=== PATIENT | male | born 1970 | race Caucasian/White ===

== ENCOUNTER 2020-01-17 15:03 | Emergency (ER) | payer OTHER ==
[~2020-01-17] VITALS: Ht 182.9 cm; Wt 111.1 kg
[2020-01-17 15:52] LABS: HEMATOCRIT 43.1 % (42.0-52.0); HEMOGLOBIN 14.6 gm/dL (14.0-18.0); MCH 28.7 pg (26.0-34.0); MCHC 33.8 g/dL (28.0-37.0); MCV 84.8 fL (80.0-100.0); PLATELET COUNT 282 thou/uL (150-400); RBC 5.08 mil/uL (4.50-6.00); RDW 14.6 % (10.5-14.5)
[2020-01-17 15:55] LABS: CREATININE 1.1 mg/dL (0.7-1.3)
[2020-01-17 16:01] LABS: ALBUMIN 4.3 g/dL (3.4-5.0); TOTAL BILIRUBIN 0.4 mg/dL (<0.1-1.0); TOTAL PROTEIN 8.2 g/dL (6.4-8.2)
[2020-01-17 16:17] LABS: PLATELET ESTIMATE NORMAL
[2020-01-17] MEDS ORDERED: OMEPRAZOLE40 MG PO (16:25)
[2020-01-17] MEDS ORDERED: ROSUVASTATIN CA10 MG PO (16:25)
[2020-01-17 16:26] LABS: URINE BILIRUBIN NEGATIVE (Negative); URINE BLOOD TRACE (Negative); URINE CLARITY CLEAR; URINE COLOR YELLOW; URINE GLUCOSE-RANDOM* NEGATIVE (Negative); URINE KETONES NEGATIVE (Negative); URINE LEUKOCYTES-REFLEX NEGATIVE (Negative); URINE NITRITE-REFLEX NEGATIVE (Negative); URINE PROTEIN (DIPSTICK) NEGATIVE (Negative); URINE SPECIFIC GRAVITY <= 1.005 (1.005-1.035); URINE UROBILINOGEN 0.2 E.U./dl (0.2-1.0)
[2020-01-17] MEDS ORDERED: NORCO 5-325 TA1 EAC1 PO (17:47)
[2020-01-17] MEDS ORDERED: AUGMENTIN 875-1 EACH PO (17:47)
[2020-01-17 18:05] VITALS: BP 127/68
== END 2020-01-17 18:06 | disposition home or self-care (01) ==
LOC: ER 15:03
PROVIDERS: Emergency Medicine
DX: K57.32 Diverticulitis of large intestine without perforation or abscess without bleeding (principal); Z98.890 Other specified postprocedural states; Z79.899 Other long term (current) drug therapy

== ENCOUNTER → 2020-04-27 | Outpatient (CLI) | payer OTHER ==
[~2020-04-27] MED LIST: AUGMENTIN 875-1 EACH PO; NEXIUM 40 MG CA40 M1 PO; NORCO 5-325 TA1 EAC1 PO; OMEPRAZOLE40 MG PO; ROSUVASTATIN CA10 MG PO
== END | disposition home or self-care (01) ==
LOC: GI 15:07 → LAB 15:07 → GI 04-30 11:26
PROVIDERS: ATTEND Student in an Organized Health Care Education/Training Program
DX: Z01.812 Encounter for preprocedural laboratory examination (principal); Z11.59 Encounter for screening for other viral diseases; Z79.899 Other long term (current) drug therapy

== ENCOUNTER → 2020-04-30 | Outpatient (CLI) | payer OTHER ==
[~2020-04-30] VITALS: Ht 182.9 cm; Wt 104.3 kg
--- NOTE | 2020-04-30 13:46 | P ---
[facility] [address] PROCEDURE REPORT Name: RAFAEL BOLANOS Room #: REG [facility]#: [id number] Admission: 04/30/20 Attend Phys: Glen Banegas MD Discharge: Date of : 70 Report #: [id number] THIS REPORT FOR: cc: Chris Mast Paul DO Thesing,Glen Walker MD ~ CC: Glen Mast DO OUTPATIENT UPPER ENDOSCOPY REPORT BRIEF HISTORY: The patient is a 49-year-old male who has a longstanding history of reflux disease. He has been poorly controlled. He also had a previous endoscopy many years ago. He does not recall specifics, but does recall some discussion about Pimentel's esophagus, but does not have any particular details. He also has intermittent solid food dysphagia. PREOPERATIVE DIAGNOSIS: Poorly controlled reflux and dysphagia and possible Pimentel in the past. POSTOPERATIVE DIAGNOSES: 1. Mild diffuse gastritis. 2. Multiple benign appearing gastric polyps. 3. Small 2 cm sliding type hiatus hernia. 4. Questionable short segment Pimentel's esophagus. MEDICATIONS: Deep sedation with propofol per anesthesia. SPECIMENS: 1. Biopsies of gastritis. 2. Biopsies of gastric polyps. 3. Biopsy of distal esophagus, rule out Pimentel. ESTIMATED BLOOD LOSS: 3 mL. PROCEDURE: EGD with biopsy and Murphy dilation. FINDINGS: Prior to propofol sedation, procedure of upper endoscopy discussed with the patient as well as potential risks and its complications. He indicates he understands and desires to proceed. DESCRIPTION OF PROCEDURE: With the patient in left lateral decubitus position, the Olympus video endoscope was inserted in the cervical esophagus under direct vision without difficulty. Examination of this organ through its entire style length revealed normal esophageal mucosa down the squamocolumnar junction. In the distal esophagus, the Z line was noted to be irregular. There may be a 2 cm [facility] [address] [address] PROCEDURE REPORT Name: RAFAEL BOLANOS [id number] Admission: 04/30/20 Attend Phys: Glen Banegas MD Discharge: Date of : 70 Report #: [id number] less short segment of Pimentel's esophagus with few scattered questionable islands of Pimentel's around the squamocolumnar junction. The mucosa was examined with white light and narrow banded imaging. The mucosa was completely flat without evidence of ulcers, strictures, mass lesions, nodules or raised lesions. Multiple biopsies were obtained. The scope was advanced and intermittently a 2 cm less sliding type hiatus hernia was seen. Mucosa hernia was unremarkable. There was no endoscopic evidence of esophagitis. The scope was advanced fully into the stomach, was examined on end view as well as retroflexed views. There was erythema in the antrum, but no ulcers or erosions. Biopsies were obtained to evaluate for H. pylori. Upon retroflexion, no mass lesions were seen. He was noted to have multiple polyps in the body and fundus of the stomach, all less than a centimeter. All had a benign appearance. Several random biopsies obtained of the polyps for diagnostic purposes. They appeared benign and probably fundic gland polyps. The pylorus, duodenal bulb, and postbulbar duodenal sweep were all inspected and noted to be unremarkable. At that point, the scope was slowly withdrawn and careful circumferential views confirmed the above findings. The patient tolerated the procedure well. Subsequently, he was dilated with passage of 52-Italian Murphy dilator without resistance. CONDITION OF THE PATIENT UPON DISCHARGE: Following procedure, the patient drowsy, aroused, conversant and will be discharged home when fully ambulatory. INSTRUCTIONS TO THE PATIENT AND FAMILY AT THE TIME OF DISCHARGE: The patient was seen in the office and given Nexium. He reports his reflux symptoms are now in control. We will follow up on biopsies and make further recommendations with regards to the findings and particularly possible Pimentel's. If he does have Pimentel mucosa, he should have a repeat endoscopy and confirmatory biopsies in 6-12 months. He is on omeprazole 40 mg daily for reflux symptoms. He should return for dilation due to recurrent symptoms of dysphagia on an as as-needed basis. Proceed with colonoscopy at this time. <ELECTRONICALLY SIGNED> By: Glen Banegas MD 04/30/20 1346 0920 0931 Glen Banegas MD /nt
--- NOTE | 2020-04-30 13:46 | P ---
[facility] [place] [address] [place] [address] PROCEDURE REPORT Name: RAFAEL BOLANOS Room #: REG [facility]#: [id number] Admission: 04/30/20 Attend Phys: Glen Banegas MD Discharge: Date of : 70 Report #: [id number] THIS REPORT FOR: cc: Chris Mast Paul DO Thesing, John A. MD ~ CC: Glen Mast DO DATE OF SERVICE: 04/30/2020 OUTPATIENT COLONOSCOPY REPORT BRIEF HISTORY: The patient is a 49-year-old male with recurrent bouts of diverticulitis. In February, he was treated for his third episode of diverticulitis. CT scan shows thickening of the sigmoid colon. PREOPERATIVE DIAGNOSIS: Recurrent diverticulitis. POSTOPERATIVE DIAGNOSES: 1. A 6 mm sessile polyp, rectum. 2. Moderate sigmoid diverticulosis coli with few scattered proximal diverticula. MEDICATIONS: Deep sedation with propofol per anesthesia. SPECIMEN: Rectal polyp. ESTIMATED BLOOD LOSS: 3 mL. PROCEDURE: Colonoscopy to cecum and terminal ileum with snare polypectomy. FINDINGS: Prior to propofol sedation, procedure of colonoscopy discussed with the patient as well as potential risks and its complications. He indicates he understands and desires to proceed. DESCRIPTION OF PROCEDURE: With the patient in left lateral decubitus position, digital examination was completed, which revealed no abnormalities. Subsequently, the Olympus video colonoscope was introduced into the rectum, advanced under direct vision to the cecum. Done with minimal difficulty. The cecum was identified by the ileocecal valve and the appendiceal orifice. I was able to visualize the distal segment of terminal ileum, which was inspected and noted to be unremarkable. At that point, the scope was slowly withdrawn and careful circumferential views were obtained. Upon slow withdrawal of the scope, the prep was excellent. Mucosa was within normal limits, normal vascular [facility] [address] [place] [address] PROCEDURE REPORT Name: RAFAEL BOLANOS [facility] [id number] Admission: 04/30/20 Attend Phys: Glen Banegas MD Discharge: Date of : 70 Report #: [id number] pattern, normal light reflex. No inflammatory lesions were seen. The colonic mucosa throughout the entire colon was normal. At the hepatic flexure, a couple of small diverticula were seen without endoscopic evidence of diverticulitis. The scope was further withdrawn and no additional abnormalities were noted until the left colon was reached, in particular the sigmoid colon, there were scattered diverticula consistent with moderate diverticulosis coli. There was no endoscopic evidence of diverticulitis. Scope was withdrawn in the rectum and in the mid to distal rectum, a 6 mm sessile polyp was seen and removed by cold snare polypectomy and recovered. Further examination revealed no additional abnormalities. Upon retroflexion, small hemorrhoids were seen. Scope was withdrawn. The patient tolerated the procedure well. CONDITION OF THE PATIENT UPON DISCHARGE: Following procedure, the patient drowsy, aroused, conversant and will be discharged to home when fully ambulatory. INSTRUCTIONS TO THE PATIENT AND FAMILY AT THE TIME OF DISCHARGE: We will follow up on the pathology of the polyp. If the polyp is an adenomatous, return in 5 years; if it is hyperplastic, then 10 years would be indicated. He has had recurrent bouts of diverticulitis. I do not see evidence of diverticulitis at this point in time, I do not see any other abnormalities. Suggest high-fiber diet. We will discuss with the patient further considerations of surgical resection due to recurrent bouts of diverticulitis. He will return to the care of Dr. Mast, return to see me as needed, especially if he has further bouts of diverticulitis or concerns. Withdrawal time from cecum was 12 minutes 11 seconds. <ELECTRONICALLY SIGNED> By: Glen Banegas MD 04/30/20 1346 0946 1005 Glen Banegas MD /nt
--- NOTE | 2020-05-01 17:06 | PATH ---
[facility] [address] PATHOLOGY RPT PROCEDURE Name: RAFAEL BOLANOS Room #: REG [facility]#: [id number] Admission: 04/30/20 Date of : 70 Discharge: Report #: [id number] Path Case #: [id number] [facility] Accession Number: [id number] . 01 Material submitted: . PART A: stomach - BX OF GASTRITIS PART B: stomach - BX OF GASTRIC POLYPS PART C: esophagus - BX OF DISTAL ESOPHAGUS. Modifiers: distal PART D: rectum - POLYP AT RECTUM . 01 Clinical history: . A: R/O H. pylori C: R/O Pimentel's Diverticulitis, GERD . 02 Diagnosis: A. Gastric mucosa, gastritis rule out H. pylori, endoscopic biopsy: - Mild reactive gastropathy. - Negative for intestinal metaplasia or atrophy. - Negative for Helicobacter pylori (properly-controlled immunohistochemical stain performed). . B. Polyps, gastric polyps, fundic gland polyps: - Negative for dysplasia. . C. Gastroesophageal mucosa, distal esophagus rule out Pimentel's, endoscopic biopsy: - Squamous mucosa showing mild esophagitis and focal increase in intraepithelial eosinophils (3 to 8/HPF), see comment. - Gastric cardia-type mucosa with moderate chronic inflammation. - Negative for intestinal metaplasia or dysplasia. . D. Polyp, at rectum, endoscopic biopsy: - Tubular adenoma. - Negative for high grade dysplasia. . (IUV:mml; 05/01/2020) [facility] 05/01/2020 1315 Local . 02 Comment: Examination of the esophageal biopsy tissue shows squamous mucosa with a marked number of intraepithelial eosinophils. Although eosinophils are commonly encountered in inflammation due to reflux esophagitis, the eosinophils in the present specimen are numerous, exceeding 3 to 8/HPF. Apart from reflux esophagitis, potential etiologies for the histologic pattern include allergic and collagen vascular diseases, fungal or parasitic infections, and eosinophilic esophagitis (idiopathic). Please [address] [address] PATHOLOGY RPT PROCEDURE Name: ARFAEL BOLANOS Room #: REG CLI [facility].#: [id number] Admission: 04/30/20 Date of : 70 Discharge: Report #: [id number] Path Case #: [id number] correlate with clinical and endoscopic findings. . (IUV:mml; 05/01/2020) . 02 Electronically signed: . Rani Mancilla MD, Pathologist NPI- [id number] . 01 Gross description: . A. The specimen is received in formalin, labeled "Rafael Carneyobe, biopsy gastritis, R/O H. pylori". Received are four segments of pale junior soft tissue ranging in size from 0.3 to 0.6 cm in maximum dimensions. The specimen is submitted entirely in cassette A1. . B. The specimen is received in formalin, labeled "Rafael Jakobe, biopsy of gastric polyps". Received are two segments of pale junior soft tissue measuring 0.4 cm each in maximum dimensions. The specimen is submitted entirely in cassette B1. . C. The specimen is received in formalin, labeled "Rafael Jakobe, biopsy distal esophagus, R/O Pimentel's". Received are four segments of pale junior soft tissue ranging in size from 0.3 to 0.6 cm in maximum dimensions. The specimen is submitted entirely in cassette C1. . D. The specimen is received in formalin, labeled "Rafael Carneyobe, polyp at rectum". Received is a segment of pale junior soft tissue measuring 1.3 cm in maximum dimensions. The specimen is submitted entirely in cassette D1. ([facility]; 04/30/2020) QAC/QAC 04/30/2020 [facility] Local . 02 Pathologist provided ICD-10: K31.9, K20.9, D12.8, K57.92, K21.0 . 02 CPT . 108338, 628036, 903421, 236356, [id number] Specimen Comment: A courtesy copy of this report has been sent to [phone], [phone] Specimen Comment: [id number] Specimen Comment: Report sent to / Performed at: [address], [place] [id number] MD Ramiro Cárdenas MD Phone: [phone] Performed at: [address], [place], [place] [id number] MD Rani Mancilla MD Phone: [phone]
== END | disposition home or self-care (01) ==
LOC: GI 07:47
PROVIDERS: ATTEND Specialist
DX: D12.8 Benign neoplasm of rectum (principal); K57.30 Diverticulosis of large intestine without perforation or abscess without bleeding; K64.8 Other hemorrhoids; K29.70 Gastritis, unspecified, without bleeding; K31.9 Disease of stomach and duodenum, unspecified; K31.7 Polyp of stomach and duodenum; K21.0 Gastro-esophageal reflux disease with esophagitis; R13.19 Other dysphagia; K44.9 Diaphragmatic hernia without obstruction or gangrene; E78.00 Pure hypercholesterolemia, unspecified; F17.220 Nicotine dependence, chewing tobacco, uncomplicated; Z98.890 Other specified postprocedural states; Z79.899 Other long term (current) drug therapy
CPT/HCPCS: 62110; 62900

== ENCOUNTER → 2020-12-17 | Outpatient (CLI) | payer OTHER | LOC: CAT 12:50 | PROVIDERS: ATTEND Family Medicine | DX: Z13.6 Encounter for screening for cardiovascular disorders (principal); E78.00 Pure hypercholesterolemia, unspecified; I25.10 Atherosclerotic heart disease of native coronary artery without angina pectoris ==

== ENCOUNTER → 2020-12-17 | Outpatient (CLI) | payer OTHER ==
[2020-12-17 13:51] LABS: ABSOLUTE NEUTROPHILS 3.5 thou/uL (1.4-8.2); BASOPHILS 0.8 % (0.0-2.0); EOSINOPHILS 3.4 % (0.0-3.0); HEMATOCRIT 41.6 % (42.0-52.0); HEMOGLOBIN 14.1 gm/dL (14.0-18.0); LYMPHOCYTES 42.2 % (24.0-44.0); MCH 28.8 pg (26.0-34.0); MCHC 33.8 g/dL (28.0-37.0); MCV 85.1 fL (80.0-100.0); MONOCYTES 8.3 % (1.0-8.0); PLATELET COUNT 267 thou/uL (150-400); POLYS 45.3 % (36.0-66.0); RBC 4.89 mil/uL (4.50-6.00); URINE BILIRUBIN NEGATIVE (Negative); URINE BLOOD 1+ (Negative); URINE CLARITY CLEAR; URINE COLOR YELLOW; URINE GLUCOSE-RANDOM* NEGATIVE (Negative); URINE KETONES NEGATIVE (Negative); URINE LEUKOCYTES-REFLEX NEGATIVE (Negative); URINE NITRITE-REFLEX NEGATIVE (Negative); URINE PROTEIN (DIPSTICK) NEGATIVE (Negative); URINE SPECIFIC GRAVITY 1.025 (1.005-1.035); URINE UROBILINOGEN 0.2 E.U./dl (0.2-1.0); WBC 7.7 thou/uL (4.0-11.0)
[2020-12-17 14:03] LABS: SQUAMOUS 0-3 Few /LPF (0-3)
[2020-12-17 14:04] LABS: CASTS None Seen /LPF (None Seen); CRYSTALS None Seen /LPF (None Seen)
[2020-12-17 14:07] LABS: BACTERIA-REFLEX 1-9 Few /HPF (None Seen); URINE RBC 0-2 Rare /HPF (0-2); URINE WBC-REFLEX 0-5 Rare /HPF (0-5)
[2020-12-17 14:21] LABS: ALBUMIN 4.1 g/dL (3.4-5.0); ANION GAP 9 mmol/L (7-16); BUN 18 mg/dL (7-18); CALCIUM 9.1 mg/dL (8.5-10.1); CHLORIDE 101 mmol/L (98-107); CO2 28 mmol/L (21-32); CREATININE 1.3 mg/dL (0.7-1.3); GLUCOSE 101 mg/dL (74-106); POTASSIUM 4.5 mmol/L (3.5-5.1); SGOT 21 U/L (15-37); SGPT 36 U/L (16-63); SODIUM 138 mmol/L (136-145); TOTAL BILIRUBIN 0.5 mg/dL (0.2-1.0); TOTAL PROTEIN 7.7 g/dL (6.4-8.2)
[2020-12-17 15:29] LABS: CHOLESTEROL 216 mg/dL (<200); HDL CHOLESTEROL 41 mg/dL (>40); LDL CHOLESTEROL 114 mg/dL (<100); TC:HDL 5.3 Ratio (Not establshd); TRIGLYCERIDE 305 mg/dL (<150); VLDL 61 mg/dL (<40)
== END ==
LOC: LAB 12:40
PROVIDERS: ATTEND Family Medicine
DX: Z00.00 Encounter for general adult medical examination without abnormal findings (principal)

== ENCOUNTER → 2020-12-31 | Outpatient (CLI) | payer OTHER | LOC: SJCVCIMAG 08:02 | PROVIDERS: ATTEND Internal Medicine Cardiovascular Disease | DX: R53.83 Other fatigue (principal); I25.10 Atherosclerotic heart disease of native coronary artery without angina pectoris ==